=== PATIENT | female | born 1940 | race Caucasian/White ===

== ENCOUNTER 2018-11-13 11:29 | Emergency (ER) | payer MEDICARE ==
[~2018-11-13] VITALS: Ht 160 cm; Wt 88.5 kg
--- NOTE | 2018-11-13 12:24 | NUR ---
cateract surgery 2013, pain started 1 week ago in the right eye. Pain in her eye kept her awake last night and that made her seel treatment today. When the eye is shut, pain in decreased. Pt states she has to blink frequently to get the film off and the eye is "weepy". pain 8/10, on top of eye and behind it.
[2018-11-13] MEDS ORDERED: LISI1TAB3 PO (12:27)
[2018-11-13 12:53] LABS: BASOPHILS # (AUTO) 0.05 x10^3/uL (0-0.1); BASOPHILS % (AUTO) 1 % (0-1); EOSINOPHILS # (AUTO) 0.16 x10^3/uL (0-0.4); EOSINOPHILS % (AUTO) 2 % (1-7); LYMPHOCYTES # (AUTO) 2.18 x10^3/uL (1-3.4); LYMPHOCYTES % (AUTO) 29 % (22-44); MD NO; MEAN CORPUSCULAR HEMOGLOBIN 29.9 pg (27.0-34.8); MEAN CORPUSCULAR HGB CONC 33.9 g/dL (32.4-35.8); MONOCYTES # (AUTO) 0.43 x10^3/uL (0.2-0.8); MONOCYTES % (AUTO) 6 % (2-9); NEUTROPHILS # (AUTO) 4.67 x10^3/uL (1.8-6.8); NEUTROPHILS % (AUTO) 62 % (42-75); PLATELET COUNT 233 x10^3/uL (130-400); RED BLOOD COUNT 5.03 x10^6/uL (3.82-5.3); RED CELL DISTRIBUTION WIDTH 14.2 % (9.6-15.2)
[2018-11-13] MEDS ORDERED: SODIUM CHLORIDE FLUSH 10ML SYR IVF ONE (13:00)
[2018-11-13 13:02] LABS: ALANINE AMINOTRANSFERASE 21 U/L (12-78); ALBUMIN 3.7 g/dL (3.4-5.0); ANION GAP 6 mmol/L (5-15); CALCIUM 10.2 mg/dL (8.5-10.1); CHLORIDE 111 mmol/L (98-107); CREATININE 0.89 mg/dL (0.55-1.02)
--- NOTE | 2018-11-13 13:04 | NUR ---
NEEDS IV FOR CT
[2018-11-13 13:05] LABS: ALKALINE PHOSPHATASE 135 U/L (45-117); BILIRUBIN,TOTAL 0.4 mg/dL (0.2-1.0); TOTAL PROTEIN 7.2 g/dL (6.4-8.2)
--- NOTE | 2018-11-13 13:28 | NUR ---
pt to ct
[2018-11-13] MEDS ORDERED: CARI350T PO (13:35)
[2018-11-13] MEDS ORDERED: OMNIPAQUE 350 MG/ML, 75ML BOTTLE ONE (14:16)
[2018-11-13 14:38] VITALS: BP 189/70
== END 2018-11-13 15:18 | disposition home or self-care (01) ==
LOC: ED 14:31
DX: H57.11 Ocular pain, right eye (principal); Z87.891 Personal history of nicotine dependence
CPT/HCPCS: 36415; 70481; 80053; 85025; 99284; Q9967

== ENCOUNTER → 2018-12-12 | Outpatient (CLI) | payer MEDICARE ==
[~2018-12-12] MED LIST: CARI350T PO; FLUT15.88 NS; IBUP-1223 PO; LEVA15HF4 INH; LISI1TAB3 PO; LOPE2CAP3 PO; PEG15DRO2 EACHEYE; TIOT18CA INH
== END | disposition home or self-care (01) ==
LOC: RAD 11:58
PROVIDERS: ATTEND Internal Medicine
DX: R91.8 Other nonspecific abnormal finding of lung field (principal); Z88.8 Allergy status to other drugs, medicaments and biological substances; Z91.041 Radiographic dye allergy status
CPT/HCPCS: 71250

== ENCOUNTER 2018-12-19 09:12 | Day surgery (SDC) | payer MEDICARE ==
[~2018-12-19] VITALS: Ht 161.3 cm; Wt 88.3 kg
[2018-12-19] MEDS ORDERED: LACTATED RINGERS 1,000 ML IV SCH (09:44)
[2018-12-19 09:48] VITALS: BP 170/80
[2018-12-19] MEDS ORDERED: FENTANYL PF 100 MCG/2ML ONE ×2 (11:10→13:07)
[2018-12-19] MEDS ORDERED: SUCCINYLCHOLINE 20 MG/ML, 10ML ONE (11:15)
[2018-12-19] MEDS ORDERED: DEXAMETHASONE 4 MG/ML, 1ML ONE (11:15)
[2018-12-19] MEDS ORDERED: ROCURONIUM 10 MG/ML,10ML ONE (11:15)
[2018-12-19] MEDS ORDERED: ONDANSETRON 2MG/ML, 2ML ONE (11:15)
[2018-12-19] MEDS ORDERED: PROPOFOL 10 MG/ML, 20ML ONE (11:15)
[2018-12-19] MEDS ORDERED: LABETALOL 5MG/ML, 20ML IV PRN (11:30)
[2018-12-19] MEDS ORDERED: hydrALAzine 20 MG/ML, 1ML IV PRN (11:30)
[2018-12-19] MEDS ORDERED: HYDROmorphone 2 MG/ML, 1ML IVPush PRN (11:30)
[2018-12-19] MEDS ORDERED: FENTANYL PF 100 MCG/2ML IV PRN (11:30)
[2018-12-19] MEDS ORDERED: PROCHLORPERAZINE 5 MG/ML, 2ML IV PRN (11:30)
[2018-12-19] MEDS ORDERED: HALOPERIDOL 5 MG/ML IV PRN (11:30)
[2018-12-19] MEDS ORDERED: MEPERIDINE/PF 25MG/0.5ML IVPush PRN (11:30)
[2018-12-19] MEDS ORDERED: METOPROLOL 1 MG/ML, 5ML IV PRN (11:30)
[2018-12-19] MEDS ORDERED: OXYcodone 5 MG/5 ML ORAL.SOL UDC PO PRN (11:30)
[2018-12-19] MEDS ORDERED: PROMETHAZINE 25 MG/ML, 1ML IV PRN (11:30)
== END 2018-12-19 15:05 | disposition home or self-care (01) ==
LOC: OUT 09:12
PROVIDERS: ATTEND Internal Medicine
DX: R91.8 Other nonspecific abnormal finding of lung field (principal); I10 Essential (primary) hypertension; E78.5 Hyperlipidemia, unspecified; J44.9 Chronic obstructive pulmonary disease, unspecified; G47.33 Obstructive sleep apnea (adult) (pediatric); E66.9 Obesity, unspecified; Z68.35 Body mass index [BMI] 35.0-35.9, adult; Z79.84 Long term (current) use of oral hypoglycemic drugs; Z79.899 Other long term (current) drug therapy; Z87.891 Personal history of nicotine dependence; Z88.8 Allergy status to other drugs, medicaments and biological substances; Z91.048 Other nonmedicinal substance allergy status; Z86.010 Personal history of colon polyps
CPT/HCPCS: 31627; 31628; 31629; 71045; 88172; 88173; 88177; 88305; 88341; 88342; 93005; J0330; J1100; J2405; J2704; J7120; 76000; J3010

== ENCOUNTER 2018-12-26 13:37 | Outpatient (CLI) | payer MEDICARE | END 2018-12-26 23:59 | disposition home or self-care (01) | LOC: CARD 13:37 | PROVIDERS: ATTEND Internal Medicine | DX: R06.02 Shortness of breath (principal) | CPT/HCPCS: 94060; 94618; 94726; 94729 ==

== ENCOUNTER 2019-02-01 20:13 | Emergency (ER) | payer MEDICARE ==
[~2019-02-01] VITALS: Ht 160 cm; Wt 86.0 kg
[2019-02-01 22:38] VITALS: BP 139/61
== END 2019-02-01 23:48 | disposition home or self-care (01) ==
LOC: ED 20:53
DX: N20.1 Calculus of ureter (principal); R07.9 Chest pain, unspecified; E78.00 Pure hypercholesterolemia, unspecified; J44.9 Chronic obstructive pulmonary disease, unspecified; Z87.891 Personal history of nicotine dependence; Z90.710 Acquired absence of both cervix and uterus
CPT/HCPCS: 36415; 71045; 74177; 80053; 81001; 83690; 83880; 84484; 85025; 87086; 93005; 94640; 96374; 96375; 99284; J1885; J2270; J2405; J7620; Q9967

== ENCOUNTER 2019-02-21 08:48 | Outpatient (CLI) | payer MEDICARE | END 2019-02-21 23:59 | disposition home or self-care (01) | LOC: CFH 08:48 | PROVIDERS: ATTEND Internal Medicine Cardiovascular Disease | DX: I08.0 Rheumatic disorders of both mitral and aortic valves (principal); I25.10 Atherosclerotic heart disease of native coronary artery without angina pectoris; J44.9 Chronic obstructive pulmonary disease, unspecified; E78.5 Hyperlipidemia, unspecified; I10 Essential (primary) hypertension | CPT/HCPCS: 93306 ==

== ENCOUNTER → 2019-08-19 | Outpatient (CLI) | payer MEDICARE ==
[~2019-08-19] MED LIST changes: +FLUT15.845 NS; -FLUT15.88 NS; +LISI1TAB23 PO; -LISI1TAB3 PO
== END | disposition home or self-care (01) ==
LOC: CFH 15:13
PROVIDERS: ATTEND Internal Medicine
DX: R91.8 Other nonspecific abnormal finding of lung field (principal)
CPT/HCPCS: 71250

== ENCOUNTER → 2020-05-15 | Outpatient (CLI) | payer MEDICARE ==
[~2020-05-15] MED LIST changes: +FLUT1AER INH; +LEVALBUTEROL; +LEVO5TAB29 PO; +LISI40TA PO; +PRALUENT
[2020-05-15 11:14] LABS: ALANINE AMINOTRANSFERASE 29 U/L (12-78); ALBUMIN 3.8 g/dL (3.4-5.0); ANION GAP 4 mmol/L (5-15); CALCIUM 11.1 mg/dL (8.5-10.1); CHLORIDE 110 mmol/L (98-107); CREATININE 1.19 mg/dL (0.55-1.02)
[2020-05-15 11:17] LABS: ALKALINE PHOSPHATASE 125 U/L (45-117); BILIRUBIN,TOTAL 0.9 mg/dL (0.2-1.0); TOTAL PROTEIN 7.5 g/dL (6.4-8.2)
== END | disposition home or self-care (01) ==
LOC: STAR 09:54
PROVIDERS: ATTEND Internal Medicine
DX: Z01.812 Encounter for preprocedural laboratory examination (principal); Z20.828 Contact with and (suspected) exposure to other viral communicable diseases
CPT/HCPCS: 36415; 80053; 87635; 93005

== ENCOUNTER 2020-05-19 09:12 | Day surgery (SDC) | payer MEDICARE ==
[~2020-05-19] VITALS: Ht 162.6 cm; Wt 85.0 kg
[2020-05-19 09:38] VITALS: BP 150/76
[2020-05-19] MEDS ORDERED: CHLORHEXIDINE 15 ML UDC ONE (09:43)
[2020-05-19] MEDS ORDERED: FENTANYL PF 100 MCG/2ML IV PRN (10:00)
[2020-05-19] MEDS ORDERED: ACETAMINOPHEN 325 MG TABLET PO PRN (10:00)
[2020-05-19] MEDS ORDERED: LACTATED RINGERS 1,000 ML IV SCH (10:00)
[2020-05-19] MEDS ORDERED: PROMETHAZINE 25 MG/ML, 1ML IVPush PRN (10:00)
[2020-05-19] MEDS ORDERED: CHLORHEXIDINE 15 ML UDC MM ONE (10:00)
[2020-05-19] MEDS ORDERED: METHOCARBAMOL 1,000 MG in DEXTROSE 5% 100 ML IV PRN (10:00)
[2020-05-19] MEDS ORDERED: ONDANSETRON 2MG/ML, 2ML IVPush PRN (10:00)
[2020-05-19] MEDS ORDERED: PROPOFOL 10 MG/ML, 50ML ONE (10:50)
== END 2020-05-19 12:45 | disposition home or self-care (01) ==
LOC: OUT 09:12
PROVIDERS: ATTEND Internal Medicine
DX: Z09 Encounter for follow-up examination after completed treatment for conditions other than malignant neoplasm (principal); D12.2 Benign neoplasm of ascending colon; D12.3 Benign neoplasm of transverse colon; K57.30 Diverticulosis of large intestine without perforation or abscess without bleeding; K64.4 Residual hemorrhoidal skin tags; K21.9 Gastro-esophageal reflux disease without esophagitis; I10 Essential (primary) hypertension; J44.9 Chronic obstructive pulmonary disease, unspecified; G47.33 Obstructive sleep apnea (adult) (pediatric); F17.210 Nicotine dependence, cigarettes, uncomplicated; Z86.010 Personal history of colon polyps; Z88.8 Allergy status to other drugs, medicaments and biological substances
CPT/HCPCS: 45380; 45385; 88305; J2704; J3010; J7120

== ENCOUNTER 2020-10-10 21:35 | Observation (INO) | payer MEDICARE ==
[~2020-10-10] VITALS: Ht 160 cm; Wt 94.5 kg
[~2020-10-10 21:35] MED LIST changes: -LISI40TA PO; +LISI40TA9 PO
[2020-10-10] MEDS ORDERED: ONDANSETRON 2MG/ML, 2ML ONE ×2 (21:42→23:39)
[2020-10-10] MEDS ORDERED: MORPHINE SULFATE 4 MG/ML, 1ML ONE (21:42)
[2020-10-10] MEDS: MORPHINE SULFATE 4 MG/ML, 1ML IVPush PRN ×2 (21:46→21:54)
[2020-10-10] MEDS ORDERED: ASPIRIN 81 MG TABLET CHEW ONE (21:47)
[2020-10-10] MEDS ORDERED: ONDANSETRON 2MG/ML, 2ML IVPush ONE (22:00)
[2020-10-10] MEDS ORDERED: ASPIRIN 81 MG TABLET CHEW PO ONE (22:00)
--- NOTE | 2020-10-10 22:08 | NUR ---
PT BIB [facility] FOR CHEST PAIN. PT PLACED ON CR MONITOR, AND MD TO BEDSIDE TO EVAL PT. PT HAS A 20 G PIV TO RIGHT FOREARM. STATES HER CP IS 8/10. EKG DONE STAT AT BEDSIDE. PIV FLUSHED AND INTACT. PER EMS THEY GAVE 2 MG MORPHINE AND ALSO 2MG ZOFRAN.
--- NOTE | 2020-10-10 22:09 | NUR ---
PT MEDICATED WITH 4MG ZOFRAN X1 AND 4 MG ZOFRAN FOR CHEST PAIN AND NAUSEA. PIV STARTED TO LEFT AC 18G X1 ATTEMPT AND FLUSHED EASY AND SECURED. NO SWELLING OR REDNESS NOTED. ASA GIVEN, SEE [facility]. PT TAKEN TO CT BY TECH AND IN GOOD SPIRITS. REMAINS ON O2 NC 2LPM HER BASELINE.
[2020-10-10 22:12] LABS: ALANINE AMINOTRANSFERASE 25 U/L (12-78); ALBUMIN 3.2 g/dL (3.4-5.0); ANION GAP 6 mmol/L (5-15); CALCIUM 9.9 mg/dL (8.5-10.1); CHLORIDE 108 mmol/L (98-107); CREATININE 1.14 mg/dL (0.55-1.02)
[2020-10-10 22:17] LABS: ALKALINE PHOSPHATASE 123 U/L (45-117); BILIRUBIN,TOTAL 0.8 mg/dL (0.2-1.0); TOTAL PROTEIN 7.2 g/dL (6.4-8.2); TROPONIN I < 0.015 ng/mL (0.000-0.045)
[2020-10-10 22:25] LABS: BASOPHILS % (AUTO) 1 % (0-1); EOSINOPHILS % (AUTO) 1 % (1-7); LYMPHOCYTES % (AUTO) 11 % (22-44); MEAN CORPUSCULAR HEMOGLOBIN 29.8 pg (27.0-34.8); MEAN CORPUSCULAR HGB CONC 33.7 g/dL (32.4-35.8); MEAN PLATELET VOLUME 7.7 fL (7.4-10.4); MONOCYTES % (AUTO) 7 % (2-9); NEUTROPHILS % (AUTO) 81 % (42-75); PLATELET COUNT 205 x10^3/uL (130-400); RED BLOOD COUNT 4.78 x10^6/uL (3.82-5.3); RED CELL DISTRIBUTION WIDTH 14.7 % (9.6-15.2)
[2020-10-10 22:26] LABS: MD NO
--- NOTE | 2020-10-10 22:34 | NUR ---
PT BACK FROM CT, A&OX4, NO ACUTE DISTRESS AT THIS TIME. CHEST PAIN IS A 5/10. PT RESTING COMFORTABLY ON CR MONITOR, SIDERAILS UP X2, AND CALL LIGHT WITHIN REACH. AWAITING RESULTS.
[2020-10-11] MEDS ORDERED: LOPERAMIDE 2 MG CAPSULE PO PRN
[2020-10-11] MEDS ORDERED: ONDANSETRON 2MG/ML, 2ML IVPush ONE
[2020-10-11] MEDS ORDERED: ACETAMINOPHEN 325 MG TABLET PO PRN (00:30)
[2020-10-11] MEDS ORDERED: morphine SULFATE 10 MG/ML, 1ML IVPush PRN (00:30)
[2020-10-11] MEDS ORDERED: NITROGLYCERIN 0.4 MG BOTTLE (25 TABS) SL PRN (00:30)
[2020-10-11] MEDS ORDERED: BISACODYL 10 MG SUPP PR PRN (00:30)
[2020-10-11] MEDS ORDERED: hydrALAzine 20 MG/ML, 1ML IVPush PRN (00:30)
[2020-10-11] MEDS ORDERED: ONDANSETRON ODT 4 MG PO PRN (00:30)
[2020-10-11] MEDS ORDERED: POLYETHYLENE GLYCOL 17 GM PACKET PO PRN (00:30)
[2020-10-11 00:46] VITALS: BP 167/89
[2020-10-11] MEDS ORDERED: OMNIPAQUE 350 MG/ML, 100ML BOTTLE ONE (01:00)
[2020-10-11 01:06] VITALS: BP 167/87
[2020-10-11] MEDS: HEPARIN 5,000 UNITS/ML, 1ML SQ SCH ×3 (02:05→20:04)
[2020-10-11 04:33] LABS: CHOLESTEROL, TOTAL 227 mg/dL (140-239); TRIGLYCERIDES 79 mg/dL (50-200); VLDL CHOLESTEROL 16 mg/dL (0-25)
[2020-10-11 04:36] LABS: CHOL/HDL RATIO 2.9; HDL CHOL % 34 % (28-40); HDL CHOLESTEROL (DIRECT) 78 mg/dL (40-60); LDL CHOLESTEROL,CALCULATED 133 mg/dL (54-169); LDL/HDL RATIO 1.7 (0.5-3.0); TROPONIN I < 0.015 ng/mL (0.000-0.045)
[2020-10-11] MEDS: ASPIRIN 81 MG TABLET EC PO SCH (06:05)
[2020-10-11] MEDS ORDERED: REGADENOSON 0.4 MG/5 ML SYRINGE ONE (07:17)
[2020-10-11 07:47] VITALS: BP 123/72
[2020-10-11] MEDS: FLUTICASONE/VILANTEROL 100-25MCG/INH INH SCH (08:45)
[2020-10-11] MEDS: SENNA/DOCUSATE TABLET PO SCH (09:00)
[2020-10-11] MEDS: LEVOCETIRIZINE 5 MG TAB PO SCH (09:00)
[2020-10-11] MEDS: LISINOPRIL 40 MG TABLET PO SCH (10:53)
[2020-10-11 10:56] VITALS: BP 146/67
[2020-10-11 11:48] LABS: TROPONIN I < 0.015 ng/mL (0.000-0.045)
[2020-10-11 19:33] VITALS: BP 123/72
[2020-10-12 01:29] VITALS: BP 114/70
[2020-10-12] MEDS: HEPARIN 5,000 UNITS/ML, 1ML SQ SCH ×2 (04:55→14:44)
[2020-10-12] MEDS: ASPIRIN 81 MG TABLET EC PO SCH (04:55)
[2020-10-12 06:49] VITALS: BP 113/69
[2020-10-12 07:07] LABS: BASOPHILS % (AUTO) 1 % (0-1); EOSINOPHILS % (AUTO) 1 % (1-7); LYMPHOCYTES % (AUTO) 17 % (22-44); MEAN CORPUSCULAR HEMOGLOBIN 30.2 pg (27.0-34.8); MEAN CORPUSCULAR HGB CONC 33.3 g/dL (32.4-35.8); MEAN PLATELET VOLUME 8.2 fL (7.4-10.4); MONOCYTES % (AUTO) 8 % (2-9); NEUTROPHILS % (AUTO) 74 % (42-75); PLATELET COUNT 205 x10^3/uL (130-400); RED BLOOD COUNT 4.13 x10^6/uL (3.82-5.3); RED CELL DISTRIBUTION WIDTH 14.7 % (9.6-15.2)
[2020-10-12 07:08] LABS: MD NO
[2020-10-12 07:12] LABS: CREATININE 0.92 mg/dL (0.55-1.02)
[2020-10-12 07:19] LABS: ANION GAP 4 mmol/L (5-15); CHLORIDE 107 mmol/L (98-107)
[2020-10-12] MEDS: FLUTICASONE/VILANTEROL 100-25MCG/INH INH SCH (08:10)
[2020-10-12] MEDS: SENNA/DOCUSATE TABLET PO SCH (09:19)
[2020-10-12] MEDS: LISINOPRIL 40 MG TABLET PO SCH (09:19)
[2020-10-12] MEDS: LEVOCETIRIZINE 5 MG TAB PO SCH (09:19)
[2020-10-12 12:28] VITALS: BP 109/65
== END 2020-10-12 16:30 | disposition home or self-care (01) ==
LOC: ED 23:05 → INTOOBSV 10-11 00:03 → EDIP 10-11 00:03 → 5SO 10-11 00:30 → DCLOUNGE 10-12 16:13
PROVIDERS: ADMIT Internal Medicine; ATTEND Internal Medicine
DX: R07.89 Other chest pain (principal); J44.9 Chronic obstructive pulmonary disease, unspecified; J96.91 Respiratory failure, unspecified with hypoxia; E83.52 Hypercalcemia; I10 Essential (primary) hypertension; R91.1 Solitary pulmonary nodule; E78.5 Hyperlipidemia, unspecified; E78.00 Pure hypercholesterolemia, unspecified; R11.2 Nausea with vomiting, unspecified; I31.3 Pericardial effusion (noninflammatory); K57.30 Diverticulosis of large intestine without perforation or abscess without bleeding; Z87.891 Personal history of nicotine dependence; Z79.899 Other long term (current) drug therapy; Z90.710 Acquired absence of both cervix and uterus
CPT/HCPCS: 36415; 71275; 74174; 78452; 80048; 80053; 80061; 82040; 82306; 83036; 83690; 83880; 83970; 84484; 85025; 93005; 93017; 94640; 96372; 96374; 96375; 96376; 99285; A9502; C8929; G0378; J1644; J2270; J2405; J2785; Q9957; Q9967

== ENCOUNTER 2020-11-04 17:52 | Emergency (ER) | payer MEDICARE ==
[~2020-11-04] VITALS: Ht 160 cm; Wt 88.0 kg
--- NOTE | 2020-11-04 18:18 | NUR ---
PT C/O OF CHEST PAIN IN THE STERNUM THAT RADIATES DOWMN LEFT BREAST, NECK, SHOULDERS, AND CARE HOME DOWN BACK. REPORTS HEADACGHE. DENIES N/V/D. PAIN FEELS LIKE OPINS AND NEEDLES.
[2020-11-04] MEDS ORDERED: ACETAMINOPHEN 500 MG TABLET ONE (19:15)
[2020-11-04] MEDS ORDERED: MAALOX/HYOSCYAMINE/LIDOCAINE 45 ML BTL ONE (19:15)
[2020-11-04 19:25] LABS: BASOPHILS % (AUTO) 0 % (0-1); EOSINOPHILS % (AUTO) 0 % (1-7); LYMPHOCYTES % (AUTO) 14 % (22-44); MEAN CORPUSCULAR HEMOGLOBIN 28.8 pg (27.0-34.8); MEAN CORPUSCULAR HGB CONC 32.9 g/dL (32.4-35.8); MONOCYTES % (AUTO) 6 % (2-9); NEUTROPHILS % (AUTO) 79 % (42-75); PLATELET COUNT 219 x10^3/uL (130-400); RED BLOOD COUNT 4.44 x10^6/uL (3.82-5.3); RED CELL DISTRIBUTION WIDTH 14.6 % (9.6-15.2)
[2020-11-04] MEDS ORDERED: ACETAMINOPHEN 500 MG TABLET PO ONE (19:30)
[2020-11-04] MEDS ORDERED: MAALOX/HYOSCYAMINE/LIDOCAINE 45 ML BTL PO ONE (19:30)
[2020-11-04 19:36] LABS: ANION GAP 5 mmol/L (5-15); CALCIUM 9.9 mg/dL (8.5-10.1); CHLORIDE 105 mmol/L (98-107); CREATININE 0.89 mg/dL (0.55-1.02)
[2020-11-04 19:37] LABS: MD NO
[2020-11-04 19:40] LABS: TROPONIN I < 0.015 ng/mL (0.000-0.045)
[2020-11-04] MEDS ORDERED: POTASSIUM CHLORIDE 20 MEQ PACKET ONE (20:23)
[2020-11-04] MEDS ORDERED: POTASSIUM CHLORIDE 20 MEQ in SODIUM CHLORIDE 0.9% 250 ML IV ONE (20:30)
[2020-11-04] MEDS ORDERED: POTASSIUM CHLORIDE 20 MEQ PACKET PO ONE (20:30)
--- NOTE | 2020-11-04 22:01 | NUR ---
PT RESTING IN BED. TALKING TO DAUGHTER BEDSIDE. VSS. ATTACHED TO MONITORS. TOLERATING K+.
[2020-11-04 23:08] VITALS: BP 117/75
== END 2020-11-04 23:12 | disposition home or self-care (01) ==
LOC: ED 18:15
DX: R07.89 Other chest pain (principal); M62.838 Other muscle spasm; J90 Pleural effusion, not elsewhere classified; E87.6 Hypokalemia; E78.00 Pure hypercholesterolemia, unspecified; R94.31 Abnormal electrocardiogram [ECG] [EKG]; I10 Essential (primary) hypertension; J44.9 Chronic obstructive pulmonary disease, unspecified; Z90.710 Acquired absence of both cervix and uterus; Z87.891 Personal history of nicotine dependence
CPT/HCPCS: 36415; 71045; 76700; 80048; 83690; 84484; 85025; 93005; 96365; 96366; 99285; J3480; J7050